=== PATIENT | male | born 1965 | race Caucasian/White ===

== ENCOUNTER 2025-06-26 09:42 | Observation (INO) | payer MEDICAID, SELFPAY ==
[2025-06-26] VITALS (16 sets, daily range): BP systolic 129–166; BP diastolic 56–91; PULSE 61–79; RESP 12–22; TEMP 36.4–36.7; O2SAT 96–100; BMI 48.9
--- NOTE | ~2025-06-26 | XR_ITS ---
EXAMINATION: XR chest 2V 06/26/2025 10:22 INDICATION: Chest pain TECHNIQUE:Frontal and lateral images of the chest were obtained. COMPARISON: None available FINDINGS: Heart is mildly enlarged. No pneumothorax. No pleural effusion. No free air under the diaphragm. Small to moderate-sized patchy opacities scattered throughout both lungs most prominent in the lower lungs. There is a 9 mm nodular density projecting over the left lung apex. Differential includes pulmonary nodule or bone lesion. A chest CT is recommended. IMPRESSION: 1: Small to moderate-sized patchy opacities scattered throughout both lungs most prominent in the lower lungs. Differential includes but is not limited to edema or pneumonia. Recommend follow-up to resolution. Consider a chest CT. 2. There is a 9 mm nodular density projecting over the left lung apex. Differential includes pulmonary nodule or bone lesion. A chest CT is recommended. Reviewed, dictated and finalized at location Q. IMPRESSION: 1: Small to moderate-sized patchy opacities scattered throughout both lungs mos t prominent in the lower lungs. Differential includes but is not limited to [place] ma or pneumonia. Recommend follow-up to resolution. Consider a chest CT. 2. There is a 9 mm nodular density projecting over the left lung apex. Differen tial includes pulmonary nodule or bone lesion. A chest CT is recommended.
--- NOTE | ~2025-06-26 | CT_ITS ---
EXAMINATION: CTA chest PE protocol DATE: 06/26/2025 12:43 INDICATION: Painful inspiration. Abnormal chest radiographs. TECHNIQUE: Computed tomography angiography (CTA) of the chest was performed with 100 mL Omnipaque-350 intravenous contrast timed to evaluate the pulmonary arteries. Coronal maximum intensity projection 3D-reconstructions were created by the technologist. Automated exposure control and iterative reconstruction technique were employed. The dose-length product was 926.64 mGy-cm. COMPARISON: Chest 2 views 06/26/2025 FINDINGS: The lungs demonstrate mild atelectasis. There are greater than 20 scattered nodules in the lungs in a random distribution measuring up to 10 mm in right upper lobe. No pleural effusion. The heart size is normal. There are coronary artery calcifications. No pericardial effusion. There is no pulmonary embolus. There are gallstones in the gallbladder. There is diffuse hepatic steatosis. The thyroid is enlarged and extends into the left superior mediastinum. There is mild thoracic spondylosis. There are bridging endplate osteophytes at multiple levels in the spine, consistent with diffuse idiopathic skeletal hyperostosis (DISH). IMPRESSION: 1. No pulmonary embolus. 2. Pulmonary nodules measuring up to 10 mm, which may be infection or metastatic disease. Reviewed, dictated and finalized at location E. IMPRESSION: 1. No pulmonary embolus. 2. Pulmonary nodules measuring up to 10 mm, which may be infection or metastati c disease.
--- NOTE | ~2025-06-26 | NM_ITS ---
EXAMINATION: NM lana stress w perfusion DATE: 06/27/2025 09:23 INDICATION: Chest pain. TECHNIQUE: Rest images were obtained following intravenous administration of 10.88 mCi Tc99m tetrofosmin (Myoview). The patient was infused intravenously with Lexiscan (regadenoson). Then, 35.0 mCi Tc99m tetrofosmin (Myoview) was administered intravenously, and stress images were obtained. Data was rec onstructed into short axis and horizontal and vertical long axis SPECT images. Gated SPECT images were also obtained. COMPARISON: None. FINDINGS: There is no definite reversible or fixed perfusion abnormality to suggest ischemia or infarction. There is no segmental wall motion abnormality. Left ventricular ejection fraction measures 67%. IMPRESSION: 1. No definite ischemia or infarct. 2. Normal left ventricular ejection fraction measuring 67%. Reviewed, dictated and finalized at location E.
--- NOTE | 2025-06-26 09:44 | ECG_ITS ---
Test Date: 2025-06-26 09:56:59 Measurements Intervals [place] Rate: 70 P: 30 IA: 164 QRS: 46 QRSD: 102 T: 16 QT: 392 QTc: 425 Interpretive Statements SINUS RHYTHM INCOMPLETE RIGHT BUNDLE BRANCH BLOCK BASELINE ARTIFACT- I, II, III, AVR, AVL, AVF, V1-V6 BORDERLINE ECG No previous ECG available for comparison Electronically Signed On 06-26-2025 10:00:25 CDT by Jori Marr D.O.
--- NOTE | 2025-06-26 10:09 | ED_ITS ---
HPI - Chest Pain General Chief Complaint: Chest Pain Stated Complaint: CP Time Seen by Provider: 06/26/25 09:52 Source: patient Mode of arrival: ambulatory Limitations: no limitations History of Present Illness HPI narrative: This is a very pleasant year old male patient with history of ?high glucose, hypertension, obesity, hyperlipidemia without any current treatment. Patient states he had a Medical card appointment last week and was told his glucose was high, however he is not on any medications nor has he been placed on any medications. 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 Patient does not routinely see a physician. He endorses that he woke up this morning and had left-sided sharp chest pain without radiation and without accompanying symptoms of dyspnea, nausea/vomiting/diaphoresis does have increased pain with deep inspiration. Patient endorses the pain is only present with breathing deeply and does not get worse with activity. He does have peripheral edema which he states he has had for years and was told by a physician that he cannot take blood pressure medicine because of it. Overall patient appears to be a very poor historian of his overall health care. Risk Factors Coronary artery disease risk factors: diabetes, smoking history, hyperlipidemia and hypertension Thoracic aortic dissection risk factors: none Pulmonary embolism risk factors: morbid obesity Related Data Home Medications ?Medication ?Instructions ?Recorded ?Confirmed ?Last Taken ?Type No Home Medications 06/26/25 06/26/25 U nknown History Allergies Allergy/AdvReac Type Severity Reaction Status Date / Time No Known Allergies Allergy Verified 06/26/25 10:10 Review of Systems 2 Review of Systems: All systems reviewed & are unremarkable except as noted in HPI and below PMFSH Past Medical History Medical History (Updated 06/26/25 @ 12:38 by VARGAS Yi) Nicotine abuse Hyperglycemia Hyperlipidemia Obesity Hypertension Social History Social History (Updated 06/26/25 @ 10:16 by VARGAS Yi) Smoking status: Current every day smoker Tobacco type: cigarettes Exam 2 Const: General: alert Nutritional Appearance: obese O rientation/consciousness: patient oriented x3 Limitations: no limitations HENMT: Head: normal to inspection Face/Nose/Sinus: Normal external nose present and Normal nares present Face and sinus: normal facial exam Mouth: Yes Normal oral and palatal mucosa present Throat: posterior oropharynx normal Eyes: Conjunctivae: conjunctivae normal Pupils: Equal, round and reactive pupils present EOM: EOMs intact bilaterally Neck: Neck: normal visual inspection and no lymphadenopathy Other: No JVD or carotid bruit Chest: Chest palpation & inspection: normal inspection of the chest and no tenderness Resp: Effort & Inspection: normal respiratory effort Other: Increased pain in chest with deep inspiration Cardio: Rate: regular rate Rhythm: regular rhythm Heart sounds: no murmurs GI: GI Palp: Yes Soft to palpation, No Tenderness to palpation present (GI), No Guarding due to palpation present (GI) and Yes Hernia present ventral A uscultation: normal bowel sounds Back/Spine/Pelvis: Back: no CVA tenderness Skin: General skin exam: normal color Rashes: no rashes Wounds: no wounds Neuro: General: patient oriented x3, moves all extremities and no focal motor deficits Cranial nerves: Yes Nystagmus not present Speech: normal speech Gait exam (Neuro): Normal gait present Extrem: General: normal to inspection and no clubbing, cyanosis or edema Psych: Mental Status: mental status grossly normal Affect: normal affect Course Course Emergency Course: A differential diagnosis including but not limited to: ACS, angina, NSTEMI, musculoskeletal chest pain, pulmonary embolism Heart score: 5 EKG showing a sinus rhythm with 70 beats per minute and incomplete right bundle- branch block. QRS is 102 and QTC is 413. No ischemic changes, however there is no EKG on file for comparison. Vital signs are reviewed and are normal Workup and she with labs, imaging EKG. Patient medicated with morphine 4 mg, aspirin 324 mg chewable. First troponin normal. Labs with stable CBC/BMP/CMP with exception of hyperglycemia noted on CMP. Patient's A1c is 9.4. This patient is diagnosed is a new diabetic. Given his elevation of heart score at 5 patient has significant risk factors for ACS. He will need the initiation of treatment for his diabetes. Patient agreeable to admission at this time. Discussed with hospitalist who graciously accepts for admission. CTA PE protocol without pulmonary embolus, however there are pulmonary nodules measuring up to 10 mm which are concerning for infection versus metastatic disease. Vital Signs Vital signs: Vital Signs Temperature 98.1 F 06/26/25 09:46 Pulse Rate 73 06/26/25 09:46 Respiratory Rate 16 06/26/25 09:46 Blood Pressure 143/82 H 06/26/25 09:46 Pulse Oximetry 98 06/26/25 09:46 Oxygen Delivery Room Air 06/26/25 09:46 Temperature 98.1 F 06/26/25 09:46 Pulse Rate 62 06/26/25 11:12 Respiratory Rate 12 06/26/25 11:12 Blood Pressure 161/81 H 06/26/25 11:12 Pulse Oximetry 98 06/26/25 11:12 Oxygen Delivery Room Air 06/26/25 10:03 MDM - Chest Pain MDM Narrative Medical decision making narrative: See ED course Differential Diagnosis Differential diagnosis: Likely stable angina, unstable angina pectoris, atypical chest pain, st elevation myocardial infarction, costochondritis and chest pain Lab Data 06/26/25 10:50 06/26/25 10:50 Labs: Lab Results 06/26/25 Range/Units 10:50 WBC 9.4 (4.5-10.0) K/mm3 RBC 4.90 (4.6-6.20) M/mm3 Hgb 14.0 (14.0-18.0) g/dL Hct 42.0 (42.0-52.0) % MCV 85.7 (80-100) fl MCH 28.6 (26-34) pg MCHC 33.3 (32-36) g/dl RDW 12.8 (11.5-14.5) % Plt Count 196 (150-375) k/mm3 MPV 9.6 (7.4-10.4) fl Immature Gran % (Auto) 0.4 (0-0.5) % Neut % (Auto) 69.8 (45.5-73.1) % Lymph % (Auto) 17.4 L (18.3-44.2) % Mathews % (Auto) 8.1 (2.6-8.5) % Eos % (Auto) 4.0 (0-4.4) % Baso % (Auto) 0.3 (0.2-1.2) % Lymph # (Auto) 1.63 (0.9-3.2) K/mm3 Mathews # (Auto) 0.8 H (0.1-0.6) K/mm3 Eos # (Auto) 0.4 H (0-0.3) K/mm3 Baso # (Auto) 0.0 (0.0-0.1) K/mm3 Abs Immat Gran (auto) 0.04 H (0.00-0.031) K/mm3 Absolute Neuts (auto) 6.5 (1.3-6.7) K/mm3 Absolute Nucleated RBC 0.000 (0.0-0.012) K/mm3 Nucleated RBC % 0.0 (0.0-0.2) % PT 13.7 (11.1-14.7) Seconds INR 1.1 APTT 33.3 (22.3-36.8) Seconds D-Dimer 0.46 (<0.48) ug/mL Sodium 135 L (137-145) mmol/L Potassium 4.1 (3.4-5.0) mmol/L Chloride 104 (98-107) mmol/L Carbon Dioxide 25 (22-30) mmol/L Anion Gap 6 (4-12) mmol/L BUN 8 L (9-20) mg/dL Creatinine 0.61 L (0.7-1.3) mg/dL Estim Creat Clear Calc 169 ml/min Estimated GFR > 60 (59 - ) Glucose 211 H (65-110) mg/dL Hemoglobin A1c 9.4 H (<5.7) % Calcium 8.4 (8.4-10.2) mg/dL Magnesium 1.9 (1.6-2.3) mg/dL Total Bilirubin 0.5 (0.2-1.3) mg/dL AST 37 (17-59) U/L ALT 39 (6-50) U/L Alkaline Phosphatase 68 (38-126) U/L Troponin I < 0.012 (0.000-0.034) ng/mL NT-Pro-B Natriuret Pep 24 (19.9-100) pg/mL Total Protein 7.3 (6.3-8.2) g/dL Albumin 3.8 (3.5-5.1) g/dL Lipase 52 (23-300) U/L Imaging Data Radiologist's impression: ITS Impressions Chest X-Ray 06/26/25 10:24 IMPRESSION: 1: Small to moderate-sized patchy opacities scattered throughout both lungs most prominent in the lower lungs. Differential includes but is not limited to edema or pneumonia. Recommend follow-up to resolution. Consider a chest CT. 2. There is a 9 mm nodular density projecting over the left lung apex. Differential includes pulmonary nodule or bone lesion. A chest CT is recommended. ITS Impressions Chest X-Ray 06/26/25 10:24 IMPRESSION: 1: Small to moderate-sized patchy opacities scattered throughout both lungs most prominent in the lower lungs. Differential includes but is not limited to edema or pneumonia. Recommend follow-up to resolution. Consider a chest CT. 2. There is a 9 mm nodular density projecting over the left lung apex. Differential includes pulmonary nodule or bone lesion. A chest CT is recommended. Chest CTA 06/26/25 12:55 IMPRESSION: 1. No pulmonary embolus. 2. Pulmonary nodules measuring up to 10 mm, which may be infection or metastatic disease. ECG Data EKG #1: Interpretation: Normal sinus rhythm 70 beats per minute without any ectopy or ischemia. There is an incomplete right bundle-branch block. QRS 102 QTC, 413 and no comparison EKG available. Discharge Plan Discharge Clinical Impression: Hypertension, Obesity, Hyperlipidemia, Nicotine abuse, Diabetes mellitus, Chest pain Patient Disposition: Still a Patient Condition: Stable Patient Language: Malay Prescriptions: No Action No Home Medications Follow-up/Referrals: UNKNOWN,DOCTOR [Primary Care Provider] Time of Disposition: 13:07
[2025-06-26] MEDS: MORPHINE SULFATE (*CRX) 4 MG/ML INJ IV PUSH (10:13)
[2025-06-26 11:06] LABS: Hematocrit 42.0 % (42.0-52.0); Hemoglobin 14.0 g/dL (14.0-18.0); Immature Granulocyte Percent A 0.4 % (0-0.5); Lymphocytes Absolute Auto 1.63 K/mm3 (0.9-3.2); Mean Corpuscular HGB Conc 33.3 g/dl (32-36); Mean Corpuscular Hemoglobin 28.6 pg (26-34); Mean Corpuscular Volume 85.7 fl (80-100); Nucleated Red Blood Cells Absolute Auto 0.000 K/mm3 (0.0-0.012); Nucleated Red Blood Cells Perc 0.0 % (0.0-0.2); Platelet Count Result 196 k/mm3 (150-375); Red Blood Count 4.90 M/mm3 (4.6-6.20); White Blood Count 9.4 K/mm3 (4.5-10.0)
[2025-06-26 11:13] LABS: INR 1.1; Prothrombin Time 13.7 Seconds (11.1-14.7)
[2025-06-26 11:14] LABS: Partial Thromboplastin Time 33.3 Seconds (22.3-36.8)
[2025-06-26 11:26] LABS: Hemoglobin A1C 9.4 % (<5.7)
[2025-06-26 11:32] LABS: Alanine Aminotransferase 39 U/L (6-50); Albumin Level 3.8 g/dL (3.5-5.1); Alkaline Phosphatase 68 U/L (38-126); Anion Gap 6 mmol/L (4-12); Aspartate Amino Transferase 37 U/L (17-59); Bilirubin,Total 0.5 mg/dL (0.2-1.3); Blood Urea Nitrogen 8 mg/dL (9-20); Calcium 8.4 mg/dL (8.4-10.2); Carbon Dioxide 25 mmol/L (22-30); Chloride 104 mmol/L (98-107); Estimated CRCL calculation 169 ml/min; Estimated Glomerular Filt Rate > 60; Glucose 211 mg/dL (65-110); Lipase 52 U/L (23-300); Magnesium 1.9 mg/dL (1.6-2.3); Potassium 4.1 mmol/L (3.4-5.0); Sodium 135 mmol/L (137-145); Total Protein 7.3 g/dL (6.3-8.2)
[2025-06-26 11:38] LABS: NT Pro B Type Natriuretic Pept 24 pg/mL (19.9-100); Troponin I < 0.012 ng/mL (0.000-0.034)
--- OUTSIDE RECORDS SUMMARY | 2025-06-26 12:01 | XMS_ITS | Clinical Summary ---
Author Organization [facility] (his torical as of May 27, 2025) Address [address] [place] [address] Care Team Providers Care Safety Engineer Name Role Phone System, Provider Not In Primary Care Provider Un available Allergies No known active allergies Medications dexamethasone (Decadron) 6 MG tablet Take 1 tablet (6 mg total) by mouth daily for 7 days. 7 tablet 08/15/2021 Active dexamethasone (Decadron) 6 MG tablet Take 1 tablet (6 mg total) by mouth daily for 7 days. 7 tablet 08/15/2021 Active Active Problems Problem Noted Date Diagnosed Date Pneumonia due to COVID-19 virus 08/14/2021 Assessment & Plan (08/15/2021 10:11 AM EST): Continue dexamethasone therapy Follow-up on CT PE study Supplemental oxygen per patient clinical course, keep saturation above 92% Currently patient does not qualify for immunomodulator therapy, trend inflammatory markers and follow clinical course Clinically patient has improved significantly, we are going to discharge patient with Decadron 6 mg p.o. daily for next 7 days Follow-up with family doctor as outpatient Assessment & Plan (08/14/2021 1:05 PM EST): Continue dexamethasone therapy Follow-up on CT PE study Supplemental oxygen per patient clinical course, keep saturation above 92% Currently patient does not qualify for immunomodulator therapy, trend inflammatory markers and follow clinical course Patient is improving Still complaining of shortness of breath with activity Possible walking desat study tomorrow morning Assessment & Plan (08/14/2021 5:03 AM EST): Continue dexamethasone therapy Follow-up on CT PE study Supplemental oxygen per patient clinical course, keep saturation above 92% Currently patient does not qualify for immunomodulator therapy, trend inflammatory markers and follow clinical course Supportive care with antitussive and antipyretic therapy Initiate Lovenox 40 mg b.i.d., titrate clinical course Morbid obesity with BMI of 45.0-49.9, adult 07/31 Assessment & Plan (08/15/2021 10:12 AM EST): Lifestyle modification . Follow-up with family doctor Assessment & Plan (08/14/2021 1:05 PM EST): Lifestyle modification Follow-up with family doctor Social History Tobacco Use Types Packs/Day Years Used Date Smoking Tobacco: Every Day Smokeless Tobacco: Never Alcohol Use Standard Drinks/Week Comments Never 0 (1 standard drink = 0.6 oz pur e alcohol) Sex and Gender Information Value Date Recorded Sex Assigned at Not on file Legal Sex Male 2:35 PM EDT Gender Identity Not on file Sexual Orientation Not on file Last Filed Vital Signs Vital Sign Reading Time Taken Comments Blood Pressure 142/86 08/15/2021 8:37 AM EST Pulse 61 08/15/2021 8:37 AM EST pulse oximetry with good pleth Temperature 36.3 C (97.3 F) 08/15/2021 8:37 AM EST Respiratory Rate 16 08/15/2021 8:37 AM EST Oxygen Saturation 96% 08/15/2021 8:3 7 AM EST Inhaled Oxygen Concentration - - Weight 159 kg (350 lb) 08/13/2021 3:12 PM EST Height 180.3 cm (5' 11) 08/13/2021 3:0 7 PM EST Body Mass Index 48.82 08/13/2021 3:07 PM EST Plan of Treatment Not on file Advance Directives * Full Code (Latest Code Status on File) Date Activated Date Inactivated Comments 08/14/2021 3:48 AM 08/15/2021 1:33 PM Care Teams Safety Engineer Relationship Specialty Start Date End Date System, Provider Not In No Address PCP - General 08/13/21
--- OUTSIDE RECORDS SUMMARY | 2025-06-26 12:01 | XMS_ITS | Clinical Summary ---
Author Organization [facility] Address [address] [facility] [place] [address] Care Team Providers Care Tool Shaper Set Up Operator Name Role Phone Pcp, No Primary Care Provider Unavailabl e Encounters Date Type Department Care Team Description 04/20/2025 1:30 PM EDT Clinical Support Occupational Medicine, [address] [id number] Jamar Luna DO Nurse, [facility] adult exam (Primary Dx) 04/20/2025 Travel from Last 3 Months Social History Tobacco Use Types Packs/Day Years Used Date Smoking Tobacco: Never Assessed Sex and Gender Information Value Date Recorded Sex Assigned at Not on file Legal Sex Male 1:19 PM EDT Gender Identity Not on file Sexual Orientation Not on file Plan of Treatment Health Maintenance Due Date Last Done Comments Hepatitis C screening 1965 NonMedicare Preventative Exam 1965 Depression Screening 1977 HIV Screening 01/18/1980 Pneumococcal Vaccination, Age 50+ (1 of 2 - PCV) 01/17 RETIRED! Adult Tdap-Td (1 - Tdap) 01/18/1984 Colonoscopy 2010 Shingles Vaccine (1 of 2) 2015 RSV Adult 60+ or ( 1 - Risk 60-74 years 1-dose series) 2025 [facility] [employer] [facility] DIRECTOR [employer] 03/31/2025 Covid-19 Vaccine (Shared dec ision making) ( - 2024- season) 2025 Influenza Vaccine (#1) 2025 Care Teams Tool Shaper Set Up Operator Relationship Specialty Start Date End Date Pcp, No PCP - General 04/20/25
--- NOTE | 2025-06-26 13:54 | ECG_ITS ---
Test Date: 2025-06-26 14:03:49 Measurements Intervals [place] Rate: 62 P: 28 NH: 191 QRS: 37 QRSD: 104 T: 9 QT: 421 QTc: 430 Interpretive Statements SINUS RHYTHM INCOMPLETE RIGHT BUNDLE BRANCH BLOCK BASELINE WANDER- I, II BORDERLINE ECG Compared to ECG 06/26/2025 09:56:59 NO SIGNIFICANT CHANGE Electronically Signed On 06-26-2025 14:11:25 CDT by Jori Marr D.O.
--- NOTE | 2025-06-26 13:59 | PM.IMHP ---
H&P: HPI History of Present Illness Date/Time: 06/26/25 13:59 Chief Complaint: Chest pain Narrative: 60-year-old male with past medical history of HTN, hyperlipidemia, DM2 without any current treatment for any of these diagnoses. He presents to the ED on 06/26/2025 with complaints of chest pain. Patient states he woke up this morning and had left-sided sharp chest pain that did not radiate. He denied dyspnea, nausea, vomiting, diaphoresis. Does have increased pain with deep inspiration. Pain is only present when breathing deeply and does not get worse with activity. Patient had a ?medical card appointment? last week and was told his glucose was high. He is not on any diabetes medications nor has he been placed on any. Patient does have some peripheral edema which he states only started several years ago after being prescribed blood pressure medications. He states a physician told him he can no longer take blood pressure medications due to side effects. 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 Patient states that he does smoke but he does not inhale. Initial vital signs 143/82, HR 73, respirations 16, afebrile at 98% on room air. Labs with no leukocytosis. Sodium 135, BUN 8, creatinine 0.61, glucose 211 and hemoglobin A1c 9.4. Troponins 0.012. Initial EKG reveals sinus rhythm and incomplete right bundle branch block. UA with no signs of infection, no glucosuria, no ketones, no protein Chest x-ray with small to moderate size patchy opacities scattered throughout both lungs Chest CTA with no pulmonary embolus but pulmonary nodules measuring up to 10 mm which may be infection or metastatic disease Review of Systems Review of Systems: All systems reviewed & are unremarkable except as noted in HPI and below [facility] Past Medical History Medical History Nicotine abuse Hyperglycemia Hyperlipidemia Obesity Hypertension Social History Social History Smoking packs per day: 1 Smoking cigarettes per day: 20.0 Smoking status: Current every day smoker Tobacco type: cigarettes Alcohol intake: never Substance use: never Lack of Transportation: No Lack of Food: Never True Current Housing: I Have Housing Concerned About Future Housing: No Difficulty Paying Gas/Electric Bills: No Difficulty Paying for Meds: No Currently Unemployed: No Education: Trade/Vocational Certificate Difficulty w/ Childcare or Family Care: No Spiritual care concerns: No Meds Home Medications and Allergies Home Medications ?Medication ?Instructions ?Recorded ?Confirmed ?Type No Home Medications 06/26/25 06/26/25 History Allergies Allergy/AdvReac Type Severity Reaction Status Date / Time No Known Allergies Allergy Verified 06/26/25 14:18 Vital Signs Vital Signs - 24 hr 06/26/25 09:46 06/26/25 09:53 06/26/25 10:00 Temperature 98.1 F Pulse Rate 73 72 72 Respiratory Rate 16 20 20 Blood Pressure 143/82 H Pulse Oximetry 98 100 Oxygen Delivery Room Air 06/26/25 10:01 06/26/25 10:03 06/26/25 10:30 Temperature Pulse Rate 70 68 Respiratory Rate 14 20 Blood Pressure 135/70 Pulse Oximetry 100 96 Oxygen Delivery Room Air 06/26/25 10:45 06/26/25 11:02 06/26/25 11:10 Temperature Pulse Rate 65 64 67 Respiratory Rate 14 16 20 Blood Pressure 166/81 H Pulse Oximetry 99 98 98 Oxygen Delivery 06/26/25 11:12 06/26/25 12:32 Temperature Pulse Rate 62 62 Respiratory Rate 12 14 Blood Pressure 161/81 H 129/76 Pulse Oximetry 98 98 Oxygen Delivery Exam Narrative: GENERAL: non-toxic appearing, in no acute distress. Morbidly obese HEAD: Normocephalic, atraumatic. EYES: PERRLA. Conjunctivae clear. NOSE: Normal no drainage. THROAT: Pharynx clear, no exudate. NECK: Trachea midline. Thyroid not palpable. No adenopathy, no masses. RESPIRATORY: Airway patent, respirations nonlabored. CTA. CARDIOVASCULAR: Regular rate and rhythm. BREASTS: Defer GASTROINTESTINAL: Abdomen is soft and nontender. No organomegaly. Bowel sounds normal in all quadrants. GENITOURINARY: Defer MUSCULOSKELETAL: Moves all extremities. No gross deformities. Moves all extremities well. No calf tenderness. SKIN: Warm, dry, normal color. Bilateral lower extremity edema NEURO: A&O X4. Speech clear PSYCHIATRIC: Normal interaction H&P: Results Labs Labs: Short CBC 06/26/25 Range/Units 10:50 WBC 9.4 (4.5-10.0) K/mm3 Hgb 14.0 (14.0-18.0) g/dL Hct 42.0 (42.0-52.0) % Plt Count 196 (150-375) k/mm3 BMP 06/26/25 10:50 Sodium 135 L Potassium 4.1 Chloride 104 Carbon Dioxide 25 BUN 8 L Creatinine 0.61 L Glucose 211 H Calcium 8.4 Cardiac Enzymes 06/26/25 Range/Units 10:50 Troponin I < 0.012 (0.000-0.034) ng/mL Liver Function 06/26/25 Range/Units 10:50 Total Bilirubin 0.5 (0.2-1.3) mg/dL AST 37 (17-59) U/L ALT 39 (6-50) U/L Alkaline Phosphatase 68 (38-126) U/L Albumin 3.8 (3.5-5.1) g/dL Assessment and Plan Assessment and plan (1) Chest pain: Qualifiers: Chest pain type: unspecified Qualified Code(s): R07.9 - Chest pain, unspecified Code(s): R07.9 - Chest pain, unspecified Status: Acute Assessment and Plan: Patient states he woke up this morning and had left-sided sharp chest pain that did not radiate. He denied dyspnea, nausea, vomiting, diaphoresis. Does have increased pain with deep inspiration. Pain is only present when breathing deeply and does not get worse with activity. - EKG, initial: sinus rhythm and incomplete right bundle branch block. - EKG, repeat: Sinus rhythm with incomplete right bundle branch block - CXR:small to moderate size patchy opacities scattered throughout both lungs - Troponin: 0.012--> 0.012--> 0.012 - ASA 324 mg given by EMS and morphine 4 mg in ED - cardiology consulted. Plan for Lexiscan on 06/27 - lipid panel shows triglycerides 100, cholesterol 133, LDL 104, HDL 30 - echo ordered - telemetry monitoring (2) Diabetes mellitus: Qualifiers: Diabetes mellitus complication status: without complication Diabetes mellitus oysterman insulin use: without long-term use Diabetes mellitus type: type 2 Qualified Code(s): E11.9 - Type 2 diabetes mellitus without complications Code(s): E11.9 - Type 2 diabetes mellitus without complications Status: Acute Assessment and Plan: Patient was told last week during appointment his glucose was high. He was not started on any medications nor has he taken any medications for diabetes in the past. This is a new diagnosis for the patient. - hypoglycemia protocol - POC blood glucose ACHS - correct regimen ordered: Low-dose sliding scale - A1C 9.4 -healthcare educator consulted (3) Pneumonia: Qualifiers: Pneumonia type: due to unspecified organism Laterality: bilateral Lung location: unspecified part of lung Qualified Code(s): J18.9 - Pneumonia, unspecified organism Code(s): J18.9 - Pneumonia, unspecified organism Status: Acute Assessment and Plan: Chest x-ray with small to moderate size patchy opacities scattered throughout both lungs. Chest CTA with no pulmonary embolus but pulmonary nodules measuring up to 10 mm which may be infection or metastatic disease. [place]. Recommend following up with his provider for further workup and follow-up imaging. -started azithromycin and ceftriaxone on 06/26 -DuoNeb q.6 p.r.n. (4) Hypertension: Qualifiers: Hypertension type: primary hypertension Qualified Code(s): I10 - Essential (primary) hypertension Code(s): I10 - Essential (primary) hypertension Status: Acute Assessment and Plan: Patient has a history of hypertension but does not take any medications for it. He states his peripheral edema only started several years ago after being prescribed blood pressure medications. He states a physician told him he can no longer take blood pressure medications due to side effects. BP 143/82 on admit -start enalapril 5 mg daily Plan Diet: Consistent carb-NPO at midnight for Lexiscan GI prophylaxis: none DVT prophylaxis: Lovenox and SCDs lines/drains: PIV Fluids: NS @ 100 Code status: Full Quality VTE Prophylaxis VTE prophylaxis: pharmacologic ordered Hospitalist [facility] Advance Care Plan I have confirmed that the patient's Advanced Care Plan is present, code status is documented, or surrogate decision maker is listed in patient medical record.: Yes Medication Reconciliation I have utilized all available resources to obtain, update and review the patients current medications (includes all prescriptions, OTC, herbals, cannabis, and nutritional supplements).: Yes
--- NOTE | 2025-06-26 14:10 | ADMGEN ---
This patient, Joey Dunham, was admitted to IMU Room 201-01. Patient/family oriented to hospital policies and general routines including ID bracelet, bed and alarms, visiting hours, pain management, procedures, bathroom and other care routines, personal items, smoking policy, room service/diet, and visiting hours. Information on how to activate the Rapid Response Team has been discussed. Patient/Family are encouraged to report perceived risks to care and to ask questions if they do not understand what they are told or what they should do.
[2025-06-26 14:14] LABS: Troponin I < 0.012 ng/mL (0.000-0.034)
[2025-06-26] MEDS: SODIUM CHLORIDE 0.9% IV 1,000 ML 100 ML IV CONT (14:36)
[2025-06-26 16:17] LABS: Troponin I < 0.012 ng/mL (0.000-0.034)
--- NOTE | 2025-06-26 16:23 | PM.CNCAR ---
Assessment and Plan Assessment and plan (1) Chest pain: Qualifiers: Chest pain type: unspecified Qualified Code(s): R07.9 - Chest pain, unspecified Code(s): R07.9 - Chest pain, unspecified Status: Acute Assessment and Plan: Troponin negative x2. EKG unremarkable. Obtain lexiscan myoview in AM. Check echo. (2) Hyperlipidemia: Qualifiers: Hyperlipidemia type: unspecified Qualified Code(s): E78.5 - Hyperlipidemia, unspecified Code(s): E78.5 - Hyperlipidemia, unspecified Status: Acute Assessment and Plan: Check lipid panel. (3) Hypertension: Qualifiers: Hypertension type: primary hypertension Qualified Code(s): I10 - Essential (primary) hypertension Code(s): I10 - Essential (primary) hypertension Status: Acute Assessment and Plan: High. Started on Enalapril. (4) Nicotine abuse: Code(s): Z72.0 - Tobacco use Status: Acute Assessment and Plan: Counseled regarding smoking cessation. History of Present Illness History of Present Illness Consult date/time: 06/26/25 16:23 Reason For Visit: CP Narrative: 60 yr old man admitted for chest pain. He has a history of DM, hypertension, dyslipidemia, smoking. Reports left sided chest pain since 7 am until 1 pm today and resolved. He is limited at walking 1-2 blocks. He puffs his cigarettes but does not inhale it. Denies orthopnea, PND, edema, dizziness, palpitations. Review of Systems Review of Systems: All systems reviewed & are unremarkable except as noted in HPI and below Constitutional: Constitutional: Reports as per HPI, Denies chills and Denies fever(s) Cardiovascular: Cardiovascular: Reports as per HPI, Reports chest pain and Denies irregular heart rhythm Respiratory: Respiratory: Denies dyspnea Gastrointestinal: Gastrointestinal: Reports as per HPI and Denies abdominal pain Genitourinary: Genitourinary: Reports as per HPI and Denies dysuria Musculoskeletal: Musculoskeletal: Reports as per HPI Neurologic: Reports as per HPI, Denies dizziness and Denies syncope [facility] Past Medical History Medical History (Updated 06/26/25 @ 15:52 by Mary Ellen Schulte APRN) Nicotine abuse Hyperglycemia Hyperlipidemia Obesity Hypertension Social History Social History (Updated 06/26/25 @ 10:16 by BRYAN YiN-C) Smoking packs per day: 1 Smoking cigarettes per day: 20.0 Smoking status: Current every day smoker Tobacco type: cigarettes Alcohol intake: never Substance use: never Lack of Transportation: No Lack of Food: Never True Current Housing: I Have Housing Concerned About Future Housing: No Difficulty Paying Gas/Electric Bills: No Difficulty Paying for Meds: No Currently Unemployed: No Education: Trade/Vocational Certificate Difficulty w/ Childcare or Family Care: No Spiritual care concerns: No Meds Home Medications and Allergies Home Medications ?Medication ?Instructions ?Recorded ?Confirmed ?Type No Home Medications 06/26/25 06/26/25 History Allergies Allergy/AdvReac Type Severity Reaction Status Date / Time No Known Allergies Allergy Verified 06/26/25 14:18 Vital Signs Vital Signs - 24 hr 06/26/25 09:46 06/26/25 09:53 06/26/25 10:00 Temperature 98.1 F Pulse Rate 73 72 72 Respiratory Rate 16 20 20 Blood Pressure 143/82 H Pulse Oximetry 98 100 Oxygen Delivery Room Air 06/26/25 10:01 06/26/25 10:03 06/26/25 10:30 Temperature Pulse Rate 70 68 Respiratory Rate 14 20 Blood Pressure 135/70 Pulse Oximetry 100 96 Oxygen Delivery Room Air 06/26/25 10:45 06/26/25 11:02 06/26/25 11:10 Temperature Pulse Rate 65 64 67 Respiratory Rate 14 16 20 Blood Pressure 166/81 H Pulse Oximetry 99 98 98 Oxygen Delivery 06/26/25 11:12 06/26/25 12:32 06/26/25 14:17 Temperature 97.6 F Pulse Rate 62 62 62 Respiratory Rate 12 14 22 H Blood Pressure 161/81 H 129/76 156/91 H Pulse Oximetry 98 98 98 Oxygen Delivery Exam Const: General: cooperative, healthy appearing, comfortable and overweight Resp: Auscultation: clear to auscultation bilaterally, no crackles, no rales, no rhonchi and no wheezes Cardio: Rate: regular rate Rhythm: regular rhythm Heart sounds: no murmurs Peripheral pulses: dorsalis pedis present GI: GI Palp: No abdominal tenderness and Yes Soft to palpation Neuro: General: oriented to person, oriented to place and oriented to time Extrem: Right lower extremity: no edema Left lower extremity: no edema Results Labs and Meds 06/26/25 10:50 06/26/25 10:50 Lab results: Cardiac Enzymes 06/26/25 06/26/25 06/26/25 Range/Units 10:50 13:31 15:48 AST 37 (17-59) U/L Troponin I < 0.012 < 0.012 < 0.012 (0.000-0.034) ng/mL Coagulation 06/26/25 Range/Units 10:50 PT 13.7 (11.1-14.7) Seconds APTT 33.3 (22.3-36.8) Seconds CBC 06/26/25 Range/Units 10:50 WBC 9.4 (4.5-10.0) K/mm3 RBC 4.90 (4.6-6.20) M/mm3 Hgb 14.0 (14.0-18.0) g/dL Hct 42.0 (42.0-52.0) % Plt Count 196 (150-375) k/mm3 Lymph # (Auto) 1.63 (0.9-3.2) K/mm3 [place] # (Auto) 0.8 H (0.1-0.6) K/mm3 Eos # (Auto) 0.4 H (0-0.3) K/mm3 Baso # (Auto) 0.0 (0.0-0.1) K/mm3 Comprehensive Metabolic Panel 06/26/25 Range/Units 10:50 Sodium 135 L (137-145) mmol/L Potassium 4.1 (3.4-5.0) mmol/L Chloride 104 (98-107) mmol/L Carbon Dioxide 25 (22-30) mmol/L BUN 8 L (9-20) mg/dL Creatinine 0.61 L (0.7-1.3) mg/dL Glucose 211 H (65-110) mg/dL Calcium 8.4 (8.4-10.2) mg/dL AST 37 (17-59) U/L ALT 39 (6-50) U/L Alkaline Phosphatase 68 (38-126) U/L Total Protein 7.3 (6.3-8.2) g/dL Albumin 3.8 (3.5-5.1) g/dL Patient Weight 06/26/25 23:59 Weight 159 kg
[2025-06-26] MEDS: cefTRIAXone 1 GM in SODIUM CHLORIDE 0.9% IV 50 ML 100 ML IVPB (16:27)
[2025-06-26] MEDS: ENALAPRIL MALEATE 5 MG TABLET PO (16:34)
[2025-06-26] MEDS: AZITHROMYCIN IV 500 MG in SODIUM CHLORIDE 0.9% IV 250 ML IVPB (16:35)
[2025-06-26 16:38] LABS: Cholesterol 153 mg/dL (0-200); HDL Direct 30 mg/dL; Triglycerides 100 mg/dL (<150)
[2025-06-26 18:15] LABS: Add Urine Microscopic? NO; Appearance Urine Clear (Clear); Glucose Urine UA Negative (Negative); Leukocyte Esterase Ur Negative LEU/UL (Negative); Nitrate Urine Negative (Negative); Specific Grav Ur > 1.045 (1.001-1.035)
[2025-06-27] VITALS (12 sets, daily range): BP systolic 134–148; BP diastolic 60–82; PULSE 58–70; RESP 16–20; TEMP 36.2–36.7; O2SAT 95–99
--- NOTE | 2025-06-27 | ECHO_ITS ---
Patient Info Name: Joey Dunham Age: 60 years : 1965 Gender: Male Ht: 71 in Wt: 350 lbs BSA: 2.90 m2 HR: 66 bpm BP: 136 / 60 mmHg Technical Quality: Good Exam Date: 06/27/2025 1:55 PM Patient Status: I Admit Date: 06/26/2025 Exam Type: CA echo dop color flow w con Complete two-dimensional, color flow and Doppler transthoracic echocardiogram is performed with contrast to opacify the left ventricle and to improve the deliniation of the left ventricle endocardial borders. Staff Referring Physician: Jori Marr DO Resident Care Aide: Inder Huffman III Attending Provider: Rodney Echeverria Contrast/Agitated Saline Contrast/Ag. Saline: Definity Amount: 2.00 ml Administered By: Inder Huffman III Existing IV Access: Yes IV Access Condition: patent with no signs of infiltration Summary 1. Definity contrast administered improved wall motion interpretation. 2. Left ventricular chamber dimension is normal. 3. Left ventricular systolic function is normal, estimated at 60-65. 4. There is moderate concentric increased left ventricular wall thickness. 5. E/e' 11 is mildly elevated. Left Ventricle E/e' 11 is mildly elevated. Left ventricular chamber dimension is normal. Left ventricular systolic function is normal, estimated at 60-65. There is moderate concentric increased left ventricular wall thickness. Definity contrast administered improved wall motion interpretation. Right Ventricle Right ventricular chamber dimension is normal. Right ventricular systolic function is normal and with normal TAPSE 2.5 cm. Left Atria Left atrial chamber dimension is normal. Right Atria Right atrial chamber dimension is normal. Aortic Valve The aortic valve is trileaflet. There is no aortic valve stenosis. There is no aortic valve regurgitation. Pulmonic Valve There is no pulmonic regurgitation. Mitral Valve There is no mitral valve stenosis. There is no mitral valve regurgitation. Tricuspid Valve There is no tricuspid valve regurgitation. Pericardium/Pleural There is no pericardial effusion. Inferior Vena Cava Normal inferior vena cava with >50% collapse upon inspiration consistent with normal right atrial pressure, 5 mmHg. Aorta The aortic root size at the sinus of Valsalva is normal. Left Ventricular Outflow Tract Name Value Normal LVOT 2D LVOT Diameter 2.6 cm LVOT Doppler LVOT Peak Velocity 98 cm/s LVOT Peak Gradient 4 mmHg LVOT Mean Gradient 2 mmHg LVOT VTI 20 cm LVOT VTI/AV VTI Ratio 1.0 LVOT Stroke Volume 104 ml LVOT CO 7.2 l/min LVOT CI 2.5 l/min/m2 Pulmonic Valve Name Value Normal PV Doppler PV Peak Velocity 135 cm/s PV Peak Gradient 7 mmHg PV Mean Gradient 5 mmHg Mitral Valve Name Value Normal MV Doppler MV Peak Gradient 2 mmHg MV Mean Gradient 1 mmHg MV Area (Cont Eq VTI) 4.6 cm2 MV Diastolic Function MV E Peak Velocity 85 cm/s MV A Peak Velocity 73 cm/s MV E/A 1.2 MV Decel Time (PW) 212 ms MV Annular TDI MV E/e' (Septal) 14.0 MV E/e' (Lateral) 10.2 MV E/e' (Average) 12.1 Tricuspid Valve Name Value Normal Estimated PAP/RSVP RA Pressure 5 mmHg <=5 TV Annular TDI TV Lateral Kaley s' Velocity 17.1 cm/s >=9.5 Aortic Valve Name Value Normal AV Doppler AV Peak Velocity 128 cm/s AV Peak Gradient 7 mmHg AV Mean Gradient 3 mmHg AV VTI 21 cm AV Area (Cont Eq VTI) 5.0 cm2 >=3.0 AV Area (Cont Eq Daron) 4.0 cm2 AV DI (Daron) 0.77 AV Regurgitation 2D LVOT Area 5.2 cm2 Ventricles Name Value Normal LV Dimensions 2D/MM IVS Diastolic Thickness (2D) 1.5 cm 0.6-1.0 LVID Diastole (2D) 4.7 cm 4.2-5.8 LVIW Diastolic Thickness (2D) 1.5 cm 0.6-1.0 LVID Systole (2D) 2.3 cm 2.5-4.0 LVOT Diameter 2.6 cm LV Mass (2D Cubed) 283.60 g 88.00-224.00 LV Mass Index (2D Cubed) 98 g/m2 49-115 Relative Wall Thickness (2D) 0.64 <=0.42 LV Fractional Shortening/Ejection Fraction 2D/MM LV Fractional Shortening (2D) 50 % 25-43 LV EF (2D Teichholz) 81 % LV Diastolic Volume (4C MOD) 92 ml LV EF (4C MOD) 63 % LV Diastolic Volume (2C MOD) 97 ml LV EF (2C MOD) 75 % LV Diastolic Volume (BP MOD) 96 ml 62-150 LV Diastolic Volume Index (BP MOD) 33 ml/m2 34-74 LV Systolic Volume (BP MOD) 30 ml 21-61 LV Systolic Volume Index (BP MOD) 10 ml/m2 11-31 LV EF (BP MOD) 68 % 52-72 LV Diastolic Length (4C) 9.4 cm LV Systolic Length (4C) 7.7 cm LV Stroke Volume (4C MOD) 58 ml Atria Name Value Normal LA Dimensions LA Volume (4C A-L) 54 ml LA Volume (BP A-L) 59 ml RA Dimensions RA Systolic Major [place] Length (4C) 5.2 cm 2.1-2.7 RA Area (4C) 15.7 cm2 <=18.0 Report Signatures
[2025-06-27] MEDS: SODIUM CHLORIDE 0.9% IV 1,000 ML 100 ML IV CONT (02:19)
--- NOTE | 2025-06-27 07:51 | P.PNCA_ITS ---
Progress Note: A&P Assessment and Plan (1) Chest pain: Qualifiers: Chest pain type: unspecified Qualified Code(s): R07.9 - Chest pain, unspecified Code(s): R07.9 - Chest pain, unspecified Status: Acute Assessment and Plan: Troponin negative x2. EKG unremarkable. Obtain lexiscan myoview and echo. If stress test is OK may d/c home from cardiology standpoint. (2) Hyperlipidemia: Qualifiers: Hyperlipidemia type: unspecified Qualified Code(s): E78.5 - Hyperlipidemia, unspecified Code(s): E78.5 - Hyperlipidemia, unspecified Status: Acute Assessment and Plan: Stable. (3) Hypertension: Qualifiers: Hypertension type: primary hypertension Qualified Code(s): I10 - Essential (primary) hypertension Code(s): I10 - Essential (primary) hypertension Status: Acute Assessment and Plan: Stable. Started on Enalapril. (4) Nicotine abuse: Code(s): Z72.0 - Tobacco use Status: Acute Assessment and Plan: Counseled regarding smoking cessation. Subjective Date/time seen: 06/27/25 07:51 Interval history: He did have mild recurrence of chest pain walking to restroom this morning. No sob. Exam Const: General: cooperative, healthy appearing, comfortable and overweight Nutritional Appearance: overweight Orientation/consciousness: oriented to person, oriented to place and oriented to time Resp: Auscultation: clear to auscultation bilaterally, no crackles, no rales, no rhonchi and no wheezes Cardio: Rate: regular rate Rhythm: regular rhythm Heart sounds: no murmurs Peripheral pulses: dorsalis pedis present Neuro: General: oriented to person, oriented to place and oriented to time Extrem: Right lower extremity: no edema Left lower extremity: no edema Objective Data Vital Signs Vital Signs: Vital Signs - 24 hr 06/26/25 09:46 06/26/25 09:53 06/26/25 10:00 Temperature 98.1 F Pulse Rate 73 72 72 Respiratory Rate 16 20 20 Blood Pressure 143/82 H Pulse Oximetry 98 100 Oxygen Delivery Room Air 06/26/25 10:01 06/26/25 10:03 06/26/25 10:30 Temperature Pulse Rate 70 68 Respiratory Rate 14 20 Blood Pressure 135/70 Pulse Oximetry 100 96 Oxygen Delivery Room Air 06/26/25 10:45 06/26/25 11:02 06/26/25 11:10 Temperature Pulse Rate 65 64 67 Respiratory Rate 14 16 20 Blood Pressure 166/81 H Pulse Oximetry 99 98 98 Oxygen Delivery 06/26/25 11:12 06/26/25 12:32 06/26/25 14:17 Temperature 97.6 F Pulse Rate 62 62 62 Respiratory Rate 12 14 22 H Blood Pressure 161/81 H 129/76 156/91 H Pulse Oximetry 98 98 98 Oxygen Delivery 06/26/25 16:00 06/26/25 16:00 06/26/25 18:00 Temperature 97.6 F Pulse Rate 65 62 70 Respiratory Rate 18 Blood Pressure 154/69 H Pulse Oximetry 99 Oxygen Delivery 06/26/25 20:00 06/26/25 20:00 06/26/25 20:00 Temperature 97.9 F Pulse Rate 71 72 Respiratory Rate 16 Blood Pressure 144/67 H Pulse Oximetry 96 Oxygen Delivery Room Air 06/26/25 22:00 06/26/25 23:56 06/27/25 00:00 Temperature 98.1 F Pulse Rate 61 79 Respiratory Rate 14 Blood Pressure 133/56 L Pulse Oximetry 97 Oxygen Delivery Room Air 06/27/25 00:00 06/27/25 02:00 06/27/25 04:00 Temperature 98.0 F Pulse Rate 69 60 69 Respiratory Rate 16 Blood Pressure 136/60 Pulse Oximetry 95 Oxygen Delivery 06/27/25 04:00 06/27/25 04:00 06/27/25 06:00 Temperature Pulse Rate 66 61 Respiratory Rate Blood Pressure Pulse Oximetry Oxygen Delivery Room Air 06/27/25 07:38 Temperature 97.6 F Pulse Rate 58 L Respiratory Rate 20 Blood Pressure 143/62 H Pulse Oximetry 98 Oxygen Delivery Intake/Output Intake/Output: Intake & Output 06/24/25 06/25/25 06/26/25 06/27/25 23:59 23:59 23:59 23:59 Intake Total 920 1200 Output Total 500 Balance 420 1200 Meds/Results Medications: Active Medications Generic Name Dose Route Start Last Admin Trade Name Freq PRN Reason Stop Dose Admin Acetaminophen 650 mg 06/26/25 13:07 Acetaminophen 325 Mg Tablet PO Q4H PRN Mild Pain (1-3) or Fever Albuterol/Ipratropium 3 ml 06/26/25 21:49 Ipratropium 0.5 Mg/Albuterol Sulfate 2.5 Mg (Base) Ampul.Neb 3 Ml INHALATION Q6HRT PRN Shortness Of Breath Or Wheezing Dextrose 12.5 gm 06/26/25 13:46 Dextrose 50% 25 Gm/50 Ml Syringe IV PUSH PRN PRN Hypoglycemia Protocol Enalapril Maleate 5 mg 06/26/25 16:05 06/26/25 16:34 Enalapril Maleate 5 Mg Tablet PO 5 mg QAM KIKE Administration Enoxaparin Sodium 40 mg 06/27/25 09:00 Enoxaparin 40 Mg/0.4 Ml Syringe SUB-Q DAILY KIKE Glucagon 1 mg 06/26/25 13:46 Glucagon For Inj 1 Mg Vial IM PRN PRN Hypoglycemia Protocol Glucose 15 gm 06/26/25 13:46 Glucose Oral Gel 15 Gm Of Glucse In 37.5 Gm Tube PO PRN PRN Hypoglycemia Protocol Sodium Chloride 1,000 mls @ 100 mls/hr 06/26/25 13:10 06/27/25 02:19 Normal Saline Iv IV CONT 100 mls/hr .Q10H KIKE Administration Dextrose 1,000 mls @ 100 mls/hr 06/26/25 13:46 Dextrose 5% 1,000 Ml IVPB PRN PRN Hypoglycemia Protocol Ceftriaxone Sodium 1 gm/ 50 mls @ 100 mls/hr 06/26/25 16:00 06/26/25 16:27 Sodium Chloride IVPB 100 mls/hr Q24H KIKE Administration Azithromycin 500 mg/ Sodium 250 mls @ 250 mls/hr 06/26/25 16:00 06/26/25 16:35 Chloride IVPB 06/30/25 16:59 250 mls/hr Q24H KIKE Administration Morphine Sulfate 2 mg 06/26/25 13:07 Morphine Sulfate (*Crx) 4 Mg/Ml Inj IV PUSH Q4H PRN Pain Rated 7-10 Ondansetron HCl 4 mg 06/26/25 13:07 Ondansetron Inj 4 Mg/2 Ml Vial IV PUSH Q6H PRN Nausea And Vomiting Perflutren Lipid Microsphere 0 ml 06/26/25 16:27 Perflutren Lipid Microspheres 1.5 Ml Vial Diluted To 10 Ml Total Volume IV PUSH 06/29/25 16:28 ONCE PRN adequate visualization Protocol Radiology Results: ITS Impressions Chest X-Ray 06/26/25 10:24 IMPRESSION: 1: Small to moderate-sized patchy opacities scattered throughout both lungs most prominent in the lower lungs. Differential includes but is not limited to edema or pneumonia. Recommend follow-up to resolution. Consider a chest CT. 2. There is a 9 mm nodular density projecting over the left lung apex. Differential includes pulmonary nodule or bone lesion. A chest CT is recommended. Chest CTA 06/26/25 12:55 IMPRESSION: 1. No pulmonary embolus. 2. Pulmonary nodules measuring up to 10 mm, which may be infection or metastatic disease. Labs Labs: Laboratory Results - last 24 hr 06/26/25 06/26/25 06/26/25 10:50 13:31 15:48 WBC 9.4 RBC 4.90 Hgb 14.0 Hct 42.0 MCV 85.7 MCH 28.6 MCHC 33.3 RDW 12.8 Plt Count 196 MPV 9.6 Immature Gran % (Auto) 0.4 Neut % (Auto) 69.8 Lymph % (Auto) 17.4 L [place] % (Auto) 8.1 Eos % (Auto) 4.0 Baso % (Auto) 0.3 Lymph # (Auto) 1.63 [place] # (Auto) 0.8 H Eos # (Auto) 0.4 H Baso # (Auto) 0.0 Abs Immat Gran (auto) 0.04 H Absolute Neuts (auto) 6.5 Absolute Nucleated RBC 0.000 Nucleated RBC % 0.0 PT 13.7 INR 1.1 APTT 33.3 D-Dimer 0.46 Sodium 135 L Potassium 4.1 Chloride 104 Carbon Dioxide 25 Anion Gap 6 BUN 8 L Creatinine 0.61 L Estim Creat Clear Calc 169 Estimated GFR > 60 Glucose 211 H POC Capillary Glucose Hemoglobin A1c 9.4 H Calcium 8.4 Magnesium 1.9 Total Bilirubin 0.5 AST 37 ALT 39 Alkaline Phosphatase 68 Troponin I < 0.012 < 0.012 < 0.012 NT-Pro-B Natriuret Pep 24 Total Protein 7.3 Albumin 3.8 Triglycerides 100 Cholesterol 153 LDL Cholesterol Direct 104 HDL Direct 30 Lipase 52 Urine Color Urine Appearance Urine pH Ur Specific [place] Urine Protein Urine Glucose (UA) Urine Ketones Ur Blood (Man) Urine Nitrate Urine Bilirubin Urine Urobilinogen Leukocyte Esterase Rfl 10/27/25 10/27/25 10/27/25 16:53 18:05 20:03 WBC RBC Hgb Hct MCV MCH MCHC RDW Plt Count MPV Immature Gran % (Auto) Neut % (Auto) Lymph % (Auto) [place] % (Auto) Eos % (Auto) Baso % (Auto) Lymph # (Auto) [place] # (Auto) Eos # (Auto) Baso # (Auto) Abs Immat Gran (auto) Absolute Neuts (auto) Absolute Nucleated RBC Nucleated RBC % PT INR APTT D-Dimer Sodium Potassium Chloride Carbon Dioxide Anion Gap BUN Creatinine Estim Creat Clear Calc Estimated GFR Glucose POC Capillary Glucose 172 H 192 H Hemoglobin A1c Calcium Magnesium Total Bilirubin AST ALT Alkaline Phosphatase Troponin I NT-Pro-B Natriuret Pep Total Protein Albumin Triglycerides Cholesterol LDL Cholesterol Direct HDL Direct Lipase Urine Color Yellow Urine Appearance Clear Urine pH 6.5 Ur Specific [place] > 1.045 H Urine Protein Negative Urine Glucose (UA) Negative Urine Ketones Negative Ur Blood (Man) Negative Urine Nitrate Negative Urine Bilirubin Negative Urine Urobilinogen 1.0 Leukocyte Esterase Rfl Negative 06/27/25 07:15 WBC RBC Hgb Hct MCV MCH MCHC RDW Plt Count MPV Immature Gran % (Auto) Neut % (Auto) Lymph % (Auto) [place] % (Auto) Eos % (Auto) Baso % (Auto) Lymph # (Auto) [place] # (Auto) Eos # (Auto) Baso # (Auto) Abs Immat Gran (auto) Absolute Neuts (auto) Absolute Nucleated RBC Nucleated RBC % PT INR APTT D-Dimer Sodium Potassium Chloride Carbon Dioxide Anion Gap BUN Creatinine Estim Creat Clear Calc Estimated GFR Glucose POC Capillary Glucose 171 H Hemoglobin A1c Calcium Magnesium Total Bilirubin AST ALT Alkaline Phosphatase Troponin I NT-Pro-B Natriuret Pep Total Protein Albumin Triglycerides Cholesterol LDL Cholesterol Direct HDL Direct Lipase Urine Color Urine Appearance Urine pH Ur Specific [place] Urine Protein Urine Glucose (UA) Urine Ketones Ur Blood (Man) Urine Nitrate Urine Bilirubin Urine Urobilinogen Leukocyte Esterase Rfl
--- NOTE | 2025-06-27 08:00 | EST_ITS ---
Patient Info Name: Joey Dunham Age: 60 years : 1965 Gender: Male Ht: 71 in Wt: 350 lbs BSA: 2.90 m2 HR: 65 bpm BP: 136 / 79 mmHg Exam Date: 06/27/2025 8:00 AM Patient Status: O Admit Date: 06/26/2025 Exam Type: CA stress lana w NM A regadenoson stress test was performed. Staff Referring Physician: Jori Marr DO Attending Provider: Rodney Echeverria Exercise Technologist: Sravanthi Li Exercise Physician: Jori Marr DO Summary 1. 1. Negative lexiscan stress test for ischemic ST changes by ECG criteria. 2. 2. Stable hemodynamics throughout the test. 3. 3. Nuclear scan to follow and will be reported separately. Please correlate with it. 4. 4. Patient informed of the above results. Protocol: Lexiscan Stress ECG Details Stage: REST Duration (min): 1 min : 6 sec HR (bpm): 63 SBP (mmHg): 136 DBP (mmHg): 79 Stage: REST Duration (min): 5 min : 1 sec HR (bpm): 68 SBP (mmHg): 136 DBP (mmHg): 79 Stage: STAGE 1 Duration (min): 1 min : 0 sec HR (bpm): 80 SBP (mmHg): 160 DBP (mmHg): 87 Stage: RECOVERY Duration (min): 1 min : 0 sec HR (bpm): 86 SBP (mmHg): 160 DBP (mmHg): 87 Stage: RECOVERY Duration (min): 2 min : 0 sec HR (bpm): 83 SBP (mmHg): 160 DBP (mmHg): 87 Stage: RECOVERY Duration (min): 3 min : 0 sec HR (bpm): 78 SBP (mmHg): 162 DBP (mmHg): 69 Stage: RECOVERY Duration (min): 3 min : 52 sec HR (bpm): 74 SBP (mmHg): 162 DBP (mmHg): 69 Rest HR: 68 bpm Peak HR: 87 bpm Rest Sys BP: 136 mmHg Peak Sys BP: 162 mmHg Max Pred HR: 160 bpm % Max Pred HR: 54 % Target HR: 136 bpm Max RPP: 14,094 bpm*mmHg Termination Reason: Completed protocol Cardiac Symptoms: Shortness of breath Total Time: 1 min : 0 sec Rest Valderrama BP: 79 mmHg Peak Valderrama BP: 69 mmHg Total Dose: 0.4 mg Resting ECG Sinus rhythm. Stress ECG No ST changes. Arrhythmias None. Report Signatures
--- NOTE | 2025-06-27 08:35 | P.PNIM_ITS ---
Progress Note: A&P Assessment and Plan (1) Chest pain: Qualifiers: Chest pain type: unspecified Qualified Code(s): R07.9 - Chest pain, unspecified Code(s): R07.9 - Chest pain, unspecified Status: Acute Assessment and Plan: CXR:small to moderate size patchy opacities scattered throughout both lungs Troponins negative ASA 324 mg given by EMS and morphine 4 mg in ED cardiology consulted. Lexiscan negative scan for ST changes, stable hemodynamics, Per cardiology patient may discharge home as cardiac workup is negative Telemetry monitoring (2) Diabetes mellitus: Qualifiers: Diabetes mellitus complication status: without complication Diabetes mellitus retirement insulin use: without supervisor intermediates use Diabetes mellitus type: type 2 Qualified Code(s): E11.9 - Type 2 diabetes mellitus without complications Code(s): E11.9 - Type 2 diabetes mellitus without complications Status: Acute Assessment and Plan: Patient was told last week during appointment his glucose was high. This is a new diagnosis for the patient. - hypoglycemia protocol - POC blood glucose ACHS - correct regimen ordered: Low-dose sliding scale - A1C 9.4 -clinical unit educator consulted (3) Pneumonia: Qualifiers: Laterality: bilateral Lung location: unspecified part of lung Pneumonia type: due to unspecified organism Qualified Code(s): J18.9 - Pneumonia, unspecified organism Code(s): J18.9 - Pneumonia, unspecified organism Status: Acute Assessment and Plan: Chest x-ray with small to moderate size patchy opacities scattered throughout both lungs. Chest CTA with no pulmonary embolus but pulmonary nodules measuring up to 10 mm which may be infection or metastatic disease. [place] Recommend following up with his provider for further workup and follow-up imaging. -started azithromycin and ceftriaxone on 06/26 -DuoNeb q.6 p.r.n. After reviewing imaging and patient likely atelectasis will discontinue antibiotics (4) Hypertension: Qualifiers: Hypertension type: primary hypertension Qualified Code(s): I10 - Essential (primary) hypertension Code(s): I10 - Essential (primary) hypertension Status: Acute Assessment and Plan: -start enalapril 5 mg daily Plan Diet: Consistent carb-NPO at midnight for Lexiscan GI prophylaxis: none DVT prophylaxis: Lovenox and SCDs lines/drains: PIV Fluids: NS @ 100 Code status: Full Subjective Date/time seen: 06/27/25 08:35 Interval history: 60-year-old male with past medical history of HTN, hyperlipidemia, DM2 without any current treatment for any of these diagnoses presents to the ED with complaints of chest pain. Chest CTA with no pulmonary embolus but pulmonary nodules measuring up to 10 mm which may be infection or metastatic disease Troponin negative x2. EKG unremarkable. Obtain lexiscan and echo Patient will need a return to work from Cardiology. Review of Systems Review of Systems: 12 systems were reviewed and are negativ e except for as per HPI. Exam Narrative: General: well appearing, appears stated age. HEENT: normocephalic, atraumatic. Mucous membranes moist. EOMI, PERRLA, bilateral sclera anicteric, no conjunctival injection. Neck supple without JVD, lymphadenopathy, or bruit. Respiratory: clear to ascultation bilaterally. No rales/rhonic/wheezes. Cardiovascular: Regular rate and rhythm, normal S1-S2 upon ascultation. No murmurs, rubs, or clicks. PMI is nondisplaced, capillary refill less than 3 second. Abdomen: Soft, round, no pulsatile masses, nondistended and nontender. No rebound, no guarding. No CVA tenderness, no hepatosplenomegaly. Bowel sounds present to all four quadrants. No high pitch or tinkling sounds, resonant to percussion. Extremities: No cyanosis, clubbing, or edema present. Pulses are palpable 2/2. Active ROM to all four extremities. Neuro: Alert and orientated x 4. PERRLA. Cranial nerves 2-12 intact without focal deficit. Skin: Warm, dry, and intact, without rash, erythema, or lesion. Psych: pleasant, cooperative, normal speech, normal affect, no hallucinations, no dysarthia Objective Data Vital Signs Vital Signs: Vital Signs - 24 hr 06/26/25 09:46 06/26/25 09:53 06/26/25 10:00 Temperature 98.1 F Pulse Rate 73 72 72 Respiratory Rate 16 20 20 Blood Pressure 143/82 H Pulse Oximetry 98 100 Oxygen Delivery Room Air 06/26/25 10:01 06/26/25 10:03 06/26/25 10:30 Temperature Pulse Rate 70 68 Respiratory Rate 14 20 Blood Pressure 135/70 Pulse Oximetry 100 96 Oxygen Delivery Room Air 06/26/25 10:45 06/26/25 11:02 06/26/25 11:10 Temperature Pulse Rate 65 64 67 Respiratory Rate 14 16 20 Blood Pressure 166/81 H Pulse Oximetry 99 98 98 Oxygen Delivery 06/26/25 11:12 06/26/25 12:32 06/26/25 14:17 Temperature 97.6 F Pulse Rate 62 62 62 Respiratory Rate 12 14 22 H Blood Pressure 161/81 H 129/76 156/91 H Pulse Oximetry 98 98 98 Oxygen Delivery 06/26/25 16:00 06/26/25 16:00 06/26/25 18:00 Temperature 97.6 F Pulse Rate 65 62 70 Respiratory Rate 18 Blood Pressure 154/69 H Pulse Oximetry 99 Oxygen Delivery 06/26/25 20:00 06/26/25 20:00 06/26/25 20:00 Temperature 97.9 F Pulse Rate 71 72 Respiratory Rate 16 Blood Pressure 144/67 H Pulse Oximetry 96 Oxygen Delivery Room Air 06/26/25 22:00 06/26/25 23:56 06/27/25 00:00 Temperature 98.1 F Pulse Rate 61 79 Respiratory Rate 14 Blood Pressure 133/56 L Pulse Oximetry 97 Oxygen Delivery Room Air 06/27/25 00:00 06/27/25 02:00 06/27/25 04:00 Temperature 98.0 F Pulse Rate 69 60 69 Respiratory Rate 16 Blood Pressure 136/60 Pulse Oximetry 95 Oxygen Delivery 06/27/25 04:00 06/27/25 04:00 06/27/25 06:00 Temperature Pulse Rate 66 61 Respiratory Rate Blood Pressure Pulse Oximetry Oxygen Delivery Room Air 06/27/25 07:38 Temperature 97.6 F Pulse Rate 58 L Respiratory Rate 20 Blood Pressure 143/62 H Pulse Oximetry 98 Oxygen Delivery Intake/Output Intake/Output: Intake & Output 06/24/25 06/25/25 06/26/25 06/27/25 23:59 23:59 23:59 23:59 Intake Total 920 1200 Output Total 500 Balance 420 1200 Meds/Results Medications: Active Medications Generic Name Dose Route Start Last Admin Trade Name Freq PRN Reason Stop Dose Admin Acetaminophen 650 mg 06/26/25 13:07 Acetaminophen 325 Mg Tablet PO Q4H PRN Mild Pain (1-3) or Fever Albuterol/Ipratropium 3 ml 06/26/25 21:49 Ipratropium 0.5 Mg/Albuterol Sulfate 2.5 Mg (Base) Ampul.Neb 3 Ml INHALATION Q6HRT PRN Shortness Of Breath Or Wheezing Dextrose 12.5 gm 06/26/25 13:46 Dextrose 50% 25 Gm/50 Ml Syringe IV PUSH PRN PRN Hypoglycemia Protocol Enalapril Maleate 5 mg 06/26/25 16:05 06/26/25 16:34 Enalapril Maleate 5 Mg Tablet PO 5 mg QAM KIKE Administration Enoxaparin Sodium 40 mg 06/27/25 09:00 Enoxaparin 40 Mg/0.4 Ml Syringe SUB-Q DAILY KKIE Glucagon 1 mg 06/26/25 13:46 Glucagon For Inj 1 Mg Vial IM PRN PRN Hypoglycemia Protocol Glucose 15 gm 06/26/25 13:46 Glucose Oral Gel 15 Gm Of Glucse In 37.5 Gm Tube PO PRN PRN Hypoglycemia Protocol Sodium Chloride 1,000 mls @ 100 mls/hr 06/26/25 13:10 06/27/25 02:19 Normal Saline Iv IV CONT 100 mls/hr .Q10H KIKE Administration Dextrose 1,000 mls @ 100 mls/hr 06/26/25 13:46 Dextrose 5% 1,000 Ml IVPB PRN PRN Hypoglycemia Protocol Ceftriaxone Sodium 1 gm/ 50 mls @ 100 mls/hr 06/26/25 16:00 06/26/25 16:27 Sodium Chloride IVPB 100 mls/hr Q24H KIKE Administration Azithromycin 500 mg/ Sodium 250 mls @ 250 mls/hr 06/26/25 16:00 06/26/25 16:35 Chloride IVPB 06/30/25 16:59 250 mls/hr Q24H KIKE Administration Morphine Sulfate 2 mg 06/26/25 13:07 Morphine Sulfate (*Crx) 4 Mg/Ml Inj IV PUSH Q4H PRN Pain Rated 7-10 Ondansetron HCl 4 mg 06/26/25 13:07 Ondansetron Inj 4 Mg/2 Ml Vial IV PUSH Q6H PRN Nausea And Vomiting Perflutren Lipid Microsphere 0 ml 06/26/25 16:27 Perflutren Lipid Microspheres 1.5 Ml Vial Diluted To 10 Ml Total Volume IV PUSH 06/29/25 16:28 ONCE PRN adequate visualization Protocol Radiology Results: ITS Impressions Chest X-Ray 06/26/25 10:24 IMPRESSION: 1: Small to moderate-sized patchy opacities scattered throughout both lungs most prominent in the lower lungs. Differential includes but is not limited to edema or pneumonia. Recommend follow-up to resolution. Consider a chest CT. 2. There is a 9 mm nodular density projecting over the left lung apex. Differential includes pulmonary nodule or bone lesion. A chest CT is recommend ed. Chest CTA 06/26/25 12:55 IMPRESSION: 1. No pulmonary embolus. 2. Pulmonary nodules measuring up to 10 mm, which may be infection or metastatic disease. Labs Labs: Laboratory Results - last 24 hr 06/26/25 06/26/25 06/26/25 10:50 13:31 15:48 WBC 9.4 RBC 4.90 Hgb 14.0 Hct 42.0 MCV 85.7 MCH 28.6 MCHC 33.3 RDW 12.8 Plt Count 196 MPV 9.6 Immature Gran % (Auto) 0.4 Neut % (Auto) 69.8 Lymph % (Auto) 17.4 L [place] % (Auto) 8.1 Eos % (Auto) 4.0 Baso % (Auto) 0.3 Lymph # (Auto) 1.63 [place] # (Auto) 0.8 H Eos # (Auto) 0.4 H Baso # (Auto) 0.0 Abs Immat Gran (auto) 0.04 H Absolute Neuts (auto) 6.5 Absolute Nucleated RBC 0.000 Nucleated RBC % 0.0 PT 13.7 INR 1.1 APTT 33.3 D-Dimer 0.46 Sodium 135 L Potassium 4.1 Chloride 104 Carbon Dioxide 25 Anion Gap 6 BUN 8 L Creatinine 0.61 L Estim Creat Clear Calc 169 Estimated GFR > 60 Glucose 211 H POC Capillary Glucose Hemoglobin A1c 9.4 H Calcium 8.4 Magnesium 1.9 Total Bilirubin 0.5 AST 37 ALT 39 Alkaline Phosphatase 68 Troponin I < 0.012 < 0.012 < 0.012 NT-Pro-B Natriuret Pep 24 Total Protein 7.3 Albumin 3.8 Triglycerides 100 Cholesterol 153 LDL Cholesterol Direct 104 HDL Direct 30 Lipase 52 Urine Color Urine Appearance Urine pH Ur Specific [place] Urine Protein Urine Glucose (UA) Urine Ketones Ur Blood (Man) Urine Nitrate Urine Bilirubin Urine Urobilinogen Leukocyte Esterase Rfl 06/26/25 06/26/25 06/26/25 16:53 18:05 20:03 WBC RBC Hgb Hct MCV MCH MCHC RDW Plt Count MPV Immature Gran % (Auto) Neut % (Auto) Lymph % (Auto) [place] % (Auto) Eos % (Auto) Baso % (Auto) Lymph # (Auto) [place] # (Auto) Eos # (Auto) Baso # (Auto) Abs Immat Gran (auto) Absolute Neuts (auto) Absolute Nucleated RBC Nucleated RBC % PT INR APTT D-Dimer Sodium Potassium Chloride Carbon Dioxide Anion Gap BUN Creatinine Estim Creat Clear Calc Estimated GFR Glucose POC Capillary Glucose 172 H 192 H Hemoglobin A1c Calcium Magnesium Total Bilirubin AST ALT Alkaline Phosphatase Troponin I NT-Pro-B Natriuret Pep Total Protein Albumin Triglycerides Cholesterol LDL Cholesterol Direct HDL Direct Lipase Urine Color Yellow Urine Appearance Clear Urine pH 6.5 Ur Specific [place] > 1.045 H Urine Protein Negative Urine Glucose (UA) Negative Urine Ketones Negative Ur Blood (Man) Negative Urine Nitrate Negative Urine Bilirubin Negative Urine Urobilinogen 1.0 Leukocyte Esterase Rfl Negative 06/27/25 07:15 WBC RBC Hgb Hct MCV MCH MCHC RDW Plt Count MPV Immature Gran % (Auto) Neut % (Auto) Lymph % (Auto) [place] % (Auto) Eos % (Auto) Baso % (Auto) Lymph # (Auto) [place] # (Auto) Eos # (Auto) Baso # (Auto) Abs Immat Gran (auto) Absolute Neuts (auto) Absolute Nucleated RBC Nucleated RBC % PT INR APTT D-Dimer Sodium Potassium Chloride Carbon Dioxide Anion Gap BUN Creatinine Estim Creat Clear Calc Estimated GFR Glucose POC Capillary Glucose 171 H Hemoglobin A1c Calcium Magnesium Total Bilirubin AST ALT Alkaline Phosphatase Troponin I NT-Pro-B Natriuret Pep Total Protein Albumin Triglycerides Cholesterol LDL Cholesterol Direct HDL Direct Lipase Urine Color Urine Appearance Urine pH Ur Specific [place] Urine Protein Urine Glucose (UA) Urine Ketones Ur Blood (Man) Urine Nitrate Urine Bilirubin Urine Urobilinogen Leukocyte Esterase Rfl Quality VTE Prophylaxis VTE prophylaxis: pharmacologic ordered
[2025-06-27] MEDS: ENOXAPARIN 40 MG/0.4 ML SYRINGE SUB-Q (09:58)
--- NOTE | 2025-06-27 10:30 | PC.NURSE ---
Notified Dr Marr and Nikki Hernandez that the patient is refusing blood pressure medication this AM. states he has had bad past experiences with blood pressure medication and does not want to take anything at this time. Educated the PT on importance of of blood pressure control. PT still refuses medication.
[2025-06-27] MEDS: PERFLUTREN LIPID MICROSPHERES 1.5 ML VIAL DILUTED TO 10 ML TOTAL VOLUME IV PUSH (14:40)
--- NOTE | 2025-06-27 14:41 | IVDEFINITY ---
Prior to administration of IV Definity the patient was educated on the risks and benefits of the imaging enhancing agent including potential adverse side effects. The patient verbalized understanding. Allergies were verified. No exclusion criteria were identified and at least one of the following inclusion criteria were met: 1) physician request, 2) patient technically difficult to image (per the [place] [employer] of Echocardiography guidelines of two or more segments not discernable within the apical view), or 3) questionable left ventricular function. ?
[2025-06-28 04:00] VITALS: BP 133/70; PULSE 63; RESP 16; TEMP 36.5; O2SAT 98
[2025-06-28 08:00] VITALS: BP 130/72; PULSE 82; RESP 16; TEMP 36.6; O2SAT 93
[2025-06-28 09:05] LABS: Hematocrit 45.0 % (42.0-52.0); Hemoglobin 15.1 g/dL (14.0-18.0); Mean Corpuscular HGB Conc 33.6 g/dl (32-36); Mean Corpuscular Hemoglobin 28.8 pg (26-34); Mean Corpuscular Volume 85.9 fl (80-100); Platelet Count Result 209 k/mm3 (150-375); Red Blood Count 5.24 M/mm3 (4.6-6.20); White Blood Count 9.5 K/mm3 (4.5-10.0)
[2025-06-28] MEDS: ENALAPRIL MALEATE 5 MG TABLET PO (09:07)
[2025-06-28 09:26] LABS: Alanine Aminotransferase 49 U/L (6-50); Albumin Level 4.2 g/dL (3.5-5.1); Alkaline Phosphatase 66 U/L (38-126); Anion Gap 7 mmol/L (4-12); Aspartate Amino Transferase 49 U/L (17-59); Bilirubin,Total 0.5 mg/dL (0.2-1.3); Blood Urea Nitrogen 6 mg/dL (9-20); Calcium 8.8 mg/dL (8.4-10.2); Carbon Dioxide 30 mmol/L (22-30); Chloride 99 mmol/L (98-107); Estimated CRCL calculation 139 ml/min; Estimated Glomerular Filt Rate > 60; Glucose 282 mg/dL (65-110); Potassium 3.7 mmol/L (3.4-5.0); Sodium 136 mmol/L (137-145); Total Protein 7.9 g/dL (6.3-8.2)
[2025-06-28 12:00] VITALS: BP 139/71; PULSE 63; RESP 16; TEMP 36.2; O2SAT 97
--- NOTE | 2025-06-28 13:26 | PM.DS ---
DS: Admitting Diagnosis Discharge Date 06/28/2025 Admitting Diagnosis chest pain dm htn DS: Discharge Diagnosis Discharge Diagnosis (1) Chest pain: Qualifiers: Chest pain type: unspecified Qualified Code(s): R07.9 - Chest pain, unspecified Code(s): R07.9 - Chest pain, unspecified Status: Acute (2) Diabetes mellitus: Qualifiers: Diabetes mellitus complication status: without complication Diabetes mellitus mcc insulin use: without mcc use Diabetes mellitus type: type 2 Qualified Code(s): E11.9 - Type 2 diabetes mellitus without complications Code(s): E11.9 - Type 2 diabetes mellitus without complications Status: Acute (3) Hypertension: Qualifiers: Hypertension type: primary hypertension Qualified Code(s): I10 - Essential (primary) hypertension Code(s): I10 - Essential (primary) hypertension Status: Acute DS: Summary Hospital Course Reason for hospitalization: chest pain dm htn Hospital Course: 60-year-old male with past medical history of HTN, hyperlipidemia, DM2 presented to the hospital for left sided chest pain. Received aspirin and morphine in the ED. Troponin negative x3. EKG showed sinus rhythm and incomplete right bundle branch block. Chest XR showed patchy opacities scattered throughout both lungs most prominent in the lower lung and a pulmonary nodular density projecting over the left lung apex. Patient started on antibiotics for potential pneumonia on 06/26. Chest CTA obtained and no PE noted, however 10 mm pulmonary nodule noted. No noted signs of infection on CTA either. Patient also denied any cough and remained afebrile without leukocytosis so low concern for pneumonia, antibiotics discontinued. Cardiology consulted. Patient chest pain resolved during admission. Lexiscan obtained and negative for ischemia. Echo showed EF 60-65% with mod lVH, and diastolic dysfunction. No concern for ACS and cardiology signed off as no further cardiac workup required. Prior to discharge discussed patient with cardiology Dr. Marr who states patient has no restrictions from a cardiology perspective and is able to drive, exercise, ect as before. Discussed with patient that his chest XR and CTA showed concerns for pulmonary nodules. Strongly encouraged patient to stop smoking. He states he will follow up with his PCP upon return to [place] about continued imaging for potential intervention regarding the nodules. During admission patient noted to have slightly elevated blood pressures. He was started on enalapril during admission with slight improvement however hesitant to start this medication in the outpatient settings due to unknown outpatient trends. Discussed with him that he should monitor his BP daily and record this for PCP follow up. He states understanding. Patient noted to have an elevated a1c on admission with elevated blood glucose levels. Discussed diabetic diet and exercise. He states understanding and plans to follow up with his PCP in regards to new diabetes diagnosis. Patient had no complaints at time of discharge denying chest pain, palpitations, shortness of breath, nausea/vomiting, abdominal pain, and dizziness/lightheadedness/weakness with ambulation. Patient discharged home in a stable condition. He is to follow up with his PCP upon arrival home. Status at Discharge Functional status at discharge: independent ambulation Time Spent with Patient Time attestation: Total time spent providing and/or coordinating discharge services: Time spent: Greater than 30 minutes Exam Narrative: AF HR 63 RR 16 SpO2 97 BP 139/71 General: male in no acute respiratory distress who is nontoxic appearing, sitting up on side of the bed HEENT: Normocephalic. Atraumatic. Extraocular movement intact. Sclera clear and anicteric. No facial asymmetry. Chest: Lungs are clear to auscultation bilaterally. No wheezes or crackles. CV: Heart was regular rate and rhythm. S1/S2. No murmurs, gallops, or rubs. Abd: Abdomen was soft. Nontender. Nondistended. Positive bowel sounds. Ext: No clubbing, cyanosis, or edema. DP pulses bilaterally. Neuro: Patient is alert and oriented x4. Strength is 5/5 in both upper and lower extremities. Speech is clear. Sensation intact. DS: Data Data Completed and Pending Completed studies during hospitalization: lexiscan stress test stress test nm chest cta chest xr Labs on day of discharge: Labs from last 24 hours 06/28/25 06/28/25 06/28/25 11:10 09:00 07:21 WBC 9.5 RBC 5.24 Hgb 15.1 Hct 45.0 MCV 85.9 MCH 28.8 MCHC 33.6 RDW 12.9 Plt Count 209 MPV 9.6 Sodium 136 L Potassium 3.7 Chloride 99 Carbon Dioxide 30 Anion Gap 7 BUN 6 L Creatinine 0.74 Estim Creat Clear Calc 139 Estimated GFR > 60 Glucose 282 H POC Capillary Glucose 272 H 207 H Calcium 8.8 Total Bilirubin 0.5 AST 49 ALT 49 Alkaline Phosphatase 66 Total Protein 7.9 Albumin 4.2 10/28/25 10/28/25 19:44 15:28 WBC RBC Hgb Hct MCV MCH MCHC RDW Plt Count MPV Sodium Potassium Chloride Carbon Dioxide Anion Gap BUN Creatinine Estim Creat Clear Calc Estimated GFR Glucose POC Capillary Glucose 182 H 212 H Calcium Total Bilirubin AST ALT Alkaline Phosphatase Total Protein Albumin Discharge Plan Discharge Attending physician on discharge: Inessa Llanos Consulting providers: Cristian,Giorgi; Jori Marr; Shonna Wallis Discharging Clinician: Shonna Wallis Anticipated Discharge Date/Time: 06/28/25 13:04 Patient Disposition: Home Activity: as tolerated Diet: as tolerated, heart healthy and diabetic Discharge Instructions: Discharge instructions: Patient admitted to the hospital for chest pain Evaluated by cardiology Workup has been negative for acute coronary syndrome Per cardiology from a cardiac standpoint patient can return to baseline daily function of driving, exercising, ect He is to follow up with his primary care provider upon return home Blood pressures slightly elevated on admission Monitor blood pressures, record the levels for pcp follow up Take caution while standing, rising, or moving Change positions slowly taking a break between each position change If you standing feel dizzy sit back down and take a break Follow up with primary care provider in terms of elevated blood pressures A nodule is noted on imaging to the left lung concerning for possible metastatic disease Follow up with primary care provider for further investigation of the source for the nodule and likely reimaging Strongly encourage smoking cessation Patient diagnosed with diabetes with elevated a1c Strongly encourage a healthy diabetic diet Follow up with primary care provider Encouraged to continue with yearly vaccinations Return to the emergency department if he developed sudden shortness of breath, chest pain, nausea, vomiting, upset stomach or intractable diarrhea Return to the emergency department if you develop fever greater than 100.5 Follow-up with the primary care physician within 1-2 weeks Thank you for [facility] for your healthcare needs Patient Instructions: Chest Pain (DC), Meal Planning with Diabetes Exchanges (DC), Pulmonary Nodules (DC), Diabetes and Exercise (DC) Patient Language: [place] Stand Alone Forms: General Discharge Information Follow-up/Referrals: UNKNOWN,DOCTOR [Primary Care Provider] Referral Note: Follow-up with your regular doctor With chest CT for Pulmonary nodules measuring up to 10 mm, which may be infection or metastatic disease Within the next 3 months Discharge Medications: Continued No Home Medications Date of admission: 06/26/25 13:07 Primary Care Provider: UNKNOWN,DOCTOR Admitting Provider: Rodney Echeverria Attending physician on admission: Rodney Echeverria Condition: Stable Hospitalist MIPS Heart Failure (Exclusion) Patient has history of Heart Transplant or Left Ventricular Assistive Device?: No IF YES, STOP HERE Heart Failure (Qualifier) Patient has current or prior documentation of LVEF less than or equal to 40%, or mod/servere depressed LVSF?: No IF NO, STOP HERE
--- NOTE | 2025-06-30 13:59 | PCCDE ---
Addendum entered by Marii Ackerman RD, LDN, CDE 06/30/25 14:01: Enc'd pt to talk with PCP re: local DSMT Original Note: 06/30/25: DM educator placed courtesy follow up call. Pt was at work, denies any questions or DM concerns.
== END 2025-06-28 15:20 | disposition home or self-care (01) ==
LOC: ANHED 13:07 → ANHIMU 06-27 15:01 → ANH3MEDSUR 06-28 06:51 → ANHIMU 06-29 06:40
PROVIDERS: General Practice; Nurse Practitioner Adult Health; Student in an Organized Health Care Education/Training Program; Admitting Provider Internal Medicine; Emergency Provider Nurse Practitioner Adult Health; Visit Provider Family Medicine
DX: R07.9 Chest pain, unspecified (principal); R91.8 Other nonspecific abnormal finding of lung field; I10 Essential (primary) hypertension; E78.5 Hyperlipidemia, unspecified; E11.9 Type 2 diabetes mellitus without complications; E66.9 Obesity, unspecified; Z68.42 Body mass index [BMI] 45.0-49.9, adult; F17.210 Nicotine dependence, cigarettes, uncomplicated
CPT/HCPCS: 36415; 71046; 71275; 78452; 80053; 80061; 81003; 82948; 83036; 83690; 83735; 83880; 84484; 85025; 85027; 85380; 85610; 85730; 93005; 93017; 96372; 96374; 99285; A9270; A9502; C8929; G0378; G0379; J0456; J0696; J1650; J2270; J2785; J7030; J7050; Q9957; Q9967